=== PATIENT | male | born 2005 | race Caucasian/White ===

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

== ENCOUNTER 2025-08-29 10:17 | Emergency (ER) | payer BC, SELFPAY ==
--- OUTSIDE RECORDS SUMMARY | 2024-04-01 15:30 | XMS_ITS ---
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 Name Role Phone Brenda KELLY, Aaliyah Primary Care Provider Unavailable Yasmine Bailey Unavailable [phone] [facility], Provider Un[facility] Conversion Encounter Medications Medication SIG (Take, Route, Frequency, Duration) Notes Start Date End Date Status Benadryl Allergy Childrens 12.5 MG/5ML 5 mL orally QID PRN; Duration: 5 day(s) Active ZyrTEC Allergy 10 MG 1 tab(s) orally bid; Duration: 30 day(s) Active RANITIDINE HYDROCHLORIDE 150 MG 1 TAB(S) ORALLY 2 TIMES A DAY *Please review for potential replacement for e-prescription and drug interaction check* 02/17/2017 Active Encounters Encounter Location Date Provider Diagnosis [facility] - [address] [address] 04/01/2024 Provider [facility] Idiopathic urticaria L50.1 Assessments Encounter Date Diagnosis (ICD Code) Assessment Notes Treatment Notes Treatment Clinical Notes Section Notes 04/01/2024 Idiopathic urticaria (ICD-10 - L50.1) Plan Of Treatment Medication Medication Name Sig Start Date Stop Date Notes ZyrTEC Allergy 10 MG 1 tab(s) orally bid; Duration: 30 day(s) RANITIDINE HYDROCHLORIDE 150 MG 1 TAB(S) ORALLY 2 TIMES A DAY 02/17/2017 *Please review for potential replacement for e-prescription and drug interaction check* Progress Notes * Kel QUIROGA JCDOB:2004 (20 yo M)Acc No.[id number]:04/01/2024 Patient: Kel SOTO JAKE Provider: Will Barraza :2005 A ge:18 Y S ex:Male Date:04/01/2024 Address:[address] [place] [address], [address] [place], [place] [id number] Pcp:Cathryn Maldonado Subjective: * Chief Complaints: * 1 . [facility] Conversion Encounter. * Medical History: * Medications: T aking Benadryl Allergy Childrens 12.5 MG/5ML Liquid 5 mL orally QID PRN Objective: * Vitals: Assessment: * Assessment: 1. I diopathic urticaria - L50.1 (Primary) Plan: * Treatment: * Billing Information: * Visit Code: * Procedure Codes: * Electronic signature of Prov ider [facility] on 08/29/2025 at 11:28 AM [employer] Sign off status: Pending * Provider: Will Barraza Date: 0 04/01/2024 Generated for Tamica landrum/Meghan/Isauroitting on: 1 10/29/2024 11:28 AM [employer]
[2025-08-29 10:27] VITALS: BP 111/86; PULSE 97; RESP 18; TEMP 37.2; O2SAT 98
[2025-08-29 11:10] LABS: EDCOVIDSCREEN Positive (Negative)
[2025-08-29 11:11] LABS: EDSTREPNEGPOS1 Negative (Negative)
[2025-08-29 11:20] LABS: EDINFLUASCREEN Negative (Negative); EDINFLUBSCREEN Negative (Negative)
--- OUTSIDE RECORDS SUMMARY | 2025-08-29 11:28 | XMS_ITS | Patient Health Record ---
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 Name Role Phone Aaliyah Gutierrez MD Primary Care Provider Unavailable Yasmine Bailey Unavailable [phone] Reason For Referral No Information Medications Medication SIG (Take, Route, Frequency, Duration) Notes Start Date End Date Status Benadryl Allergy Childrens 12.5 MG/5ML 5 mL orally QID PRN; Duration: 5 day(s) Active BENADRYL ALLERGY 12.5 mg/5 mL 5 mL orally QID PRN; Duration: 5 day(s) Active ZyrTEC Allergy 10 MG 1 tab(s) orally bid; Duration: 30 day(s) Active RANITIDINE HYDROCHLORIDE 150 MG 1 TAB(S) ORALLY 2 TIMES A DAY *Please review for potential replacement for e-prescription and drug interaction check* 02/17/2017 Active ZYRTEC 10 mg 1 tab(s) orally bid; Duration: 30 day(s) Active Immunizations Vaccine Route Administration Date Status Comme nts Influenza Unknown 06/22/2016 Administered Problems Problem Type SNOMED Code ICD Code Onset Dates Problem Status W/U Status Risk Notes Problem Idiopathic urticaria (30598016) Idiopathic urticaria (L50.1) Active confirmed Problem Eruption of skin (992310159) Rash and other nonspecific skin eruption (R21) Active confirmed Problem Allergic rhinitis (11158684) Other allergic rhinitis (J30.89) Active confirmed Plan Of Treatment No Information Insurance Providers Payer Name Payer Address Payer Phone Subscriber Number Group Number Insured Name Patient Relationship to Insured Coverage Start Date Coverage End Date [facility] [address] [place] [address] [id number] Zaid Quiroga Natural Child - Insured has Financial Responsibility Medical (General) History Medical History History ICD Code Petechial Rash 12/2016
--- NOTE | 2025-08-29 11:49 | ED.URI ---
HPI - URI/Sore Throat General Chief Complaint: Upper Respiratory Infection Stated Complaint: Sore Throat Time Seen by Provider: 08/29/25 11:00 Source: patient and RN notes reviewed Mode of arrival: ambulatory Limitations: no limitations History of Present Illness HPI Narrative: 20-year-old male patient presents [facility] complaining of upper respiratory symptoms for approximately 3 days. Patient reports cough, body aches, chills, congestion, sore throat, shortness of breath, chest congestion. Patient denies any chest pain, difficulty breathing, nausea vomiting, diarrhea, any other upper respiratory symptoms, fevers, or any other symptoms. Patient taking DayQuil and NyQuil to help with symptoms with some relief. Patient reports he is a smoker. Patient said he took a home COVID test yesterday was positive. Patient is has gotten vaccinated for COVID in the past. Related Data Home Medications ?Medication ?Instructions ?Recorded ?Confirmed ?Last Taken ?Type medical cannabis BYMOUTH 12/06/23 12/06/23 Unknown History Allergies Allergy/AdvReac Type Severity Reaction Status Date / Time No Known Allergies Allergy Verified 08/29/25 10:28 Review of Systems Review of Systems: CONSTITUTIONAL: Denies fever, or sweats. Positive body aches chills. EYES: Denies visual changes, redness, or discharge. ENT: Positive for congestion, sore throat. Negative for rhinorrhea or otalgia. CARDIOVASCULAR: Denies chest pain, palpitations, dizziness or lightheadedness, or edema. RESPIRATORY: Positive for cough and dyspnea. Negative for wheezing or difficulty breathing. GASTROINTESTINAL: Denies abdominal pain, nausea, vomiting, or diarrhea. GENITOURINARY: Denies dysuria or hematuria. SKIN: Denies rash or itching. MUSCULOSKELETAL: Denies back pain, joint pain, or myalgia. NEUROLOGIC: Denies headache, numbness, or weakness. PSYCHIATRIC: Denies anxiety or depression. All other systems reviewed are negative, except as documented in HPI. [facility] Past Medical History Medical History Localized swelling, mass and lump, unspecified upper limb Intermittent chest pain Pain of right scapula BMI 21.0-21.9, adult Encounter for wellness examination in adult Anorexia nervosa in remission in remission with cannabis. Treatment started at age 14. BMI 22.0-22.9, adult Marijuana use smokes once or twice daily. medical cannabis for diagnosis of anorexia at age 14. Chronic anxiety Potential exposure to STD Moderately severe depression Vertigo Insomnia Near [facility] [place] School physical exam Acne vulgaris Tension headache, chronic Seasonal allergic rhinitis COVID test was negative 01/29/2022. Chronic pain of both knees Chronic low back pain without sciatica Family History Family History Grandparent Family history of obesity Family history of congestive heart failure Family history of human immunodeficiency virus infection Mother Hypertension Social History Social History Second hand tobacco smoke exposure: No Alcohol intake: never Substance use: current Substance use type: marijuana Lack of Transportation: No Lack of Food: Never True Current Housing: I Have Housing Concerned About Future Housing: No Difficulty Paying Gas/Electric Bills: No Difficulty Paying for Meds: No Currently Unemployed: No Education: Grade School Difficulty w/ Childcare or Family Care: No Comments At the time of my signature, I reviewed and agree with the nursing past medical, surgical, social, and family history. There is no relevant family history pertinent to the patient complaint. Exam Narrative: GENERAL: This is a well-nourished, well-developed adult, in no apparent distress. They are non ill-appearing, nontoxic appearing. HEAD: normocephalic, atraumatic. EYES: Sclera clear/white. Vision is grossly intact. Conjunctiva normal bilaterally. Extraocular movements intact. EARS: External ears normal, auditory canals clear and without drainage, TMs without erythema or perforation. Hearing grossly intact. NOSE: External nose normal with no obvious nasal discharge, nasal turbinates erythematous, no rhinorrhea. THROAT: Mucous membranes moist, posterior pharynx erythematous without exudate. Red and patchy. Uvula is midline. Postnasal drip present. NECK: Neck supple, mild cervical lymphadenopathy, no masses or thyromegaly. CARDIOVASCULAR: Regular rate and rhythm without murmurs, gallops, or rubs. RESPIRATORY: Clear to auscultation. Breath sounds equal bilaterally. No wheezes, rales, or rhonchi. Respiratory rate normal, respiratory effort nonlabored, no respiratory distress SKIN: warm, Dry, intact with no suspicious lesions or rash, good texture and turgor. NEURO: awake, alert, and oriented to person, place and time. There were no obvious focal neurologic abnormalities. EXTREMITIES: No joint tenderness, effusion, or edema noted. BACK: Nontender without deformity. Course Course Emergency Course: Portions of this record may have been created with voice recognition software Level of Care: Express Care Visit Vital Signs Vital signs: Vital Signs Temperature 99.0 F 08/29/25 10:27 Pulse Rate 97 08/29/25 10:27 Respiratory Rate 18 08/29/25 10:27 Blood Pressure 111/86 08/29/25 10:27 Pulse Oximetry 98 08/29/25 10:27 Oxygen Delivery Room Air 08/29/25 10:27 Temperature 99.0 F 08/29/25 10:27 Pulse Rate 97 08/29/25 10:27 Respiratory Rate 18 08/29/25 10:27 Blood Pressure 111/86 08/29/25 10:27 Pulse Oximetry 98 08/29/25 10:27 Oxygen Delivery Room Air 08/29/25 10:27 MDM - URI/Sore Throat MDM Narrative Medical decision making narrative: Rapid COVID positive. Rapid flu and strep were negative. A throat culture is pending. Symptoms consistent COVID virus. Given patient's smoking history will give a course of prednisone to help with the dyspnea along with an albuterol inhaler and benzonatate tablets for cough. Discussed supportive care. Patient nontoxic appearing, no apparent distress. Vital signs hemodynamically stable. Oxygen saturations are normal. Discussed physical exam findings. Advised supportive measures and signs/symptoms to go to the ER. Pt is appropriate for outpt treatment and f/u. Differential Diagnosis Differential diagnosis: Likely upper respiratory infection, sinusitis, viral infection, bronchitis, influenza, pharyngitis and other (COVID) Lab Data Attestation: I reviewed the patient's lab results. Labs: Lab Results 08/29/25 08/29/25 08/29/25 Range/Units 11:08 11:09 11:18 POC Influenza A Ag Negative (Negative) POC Influenza B Ag Negative (Negative) POC SARS CoV-2 Ag Positive (Negative) POC Grp A Strep Screen Negative (Negative) Discharge Plan Discharge Clinical Impression: COVID Patient Disposition: Home Condition: Stable Instructions: Antibiotic Form, COVID-19 (Coronavirus Disease 2019) (ED) Additional Instructions: You should avoid crowds until you are fever free for 24 hours without the use of fever reducing medications, or the symptoms are improved Rest. Drink plenty of fluids. Take the prednisone as directed. Use albuterol inhaler as needed for shortness of breath or wheezing. Use with a spacer. Please stop smoking. You may take ibuprofen 600 mg to 800 mg every 6-8 hours. Do not exceed more than 800 mg of ibuprofen per dose. Do not exceed more than 3200 mg ibuprofen in a day. You may take up to 1000 mg Tylenol every 6-8 hours. Do not exceed 1000 mg per dose, do exceed more than 4000 mg of Tylenol in a day. Take benzonatate as needed for cough. Rest and drink plenty of fluids. Follow up with your primary care provider 5-7 days. Go to the ER for worsening symptoms, difficulty breathing, wheezing, unable to talk in full sentences, severe chest pains, vomiting, uncontrollable fevers, or any serious concerns Patient Language: Citizen [place] Prescriptions: New benzonatate 200 mg capsule 200 mg PO BID PRN (Reason: cough) Qty: 20 0RF prednisone 20 mg tablet 40 mg PO DAILY 5 Days Qty: 10 0RF albuterol sulfate [Ventolin HFA] 90 mcg/actuation HFA aerosol inhaler 2 puff inhalation QID PRN (Reason: shortness of breath or wheezing) Qty: 8.5 0RF (DME) [employer] Aerosol [employer] Enhancer Spacer See Rx Instructions .Route Qty: 1 0RF Rx Instructions: As directed No Action medical cannabis BYMOUTH Patient Comments: Diagnosed with anorexia at age 14. Treated with medical cannabis. meloxicam 15 mg tablet 15 mg PO DAILY PRN (Reason: pain) Qty: 30 11RF Follow-up/Referrals: Yu Hernadez APRN [Primary Care Provider, [facility]] Time of Disposition: 11:20
== END 2025-08-29 11:25 | disposition home or self-care (01) ==
PROVIDERS: PCP Nurse Practitioner Family
DX: U07.1 COVID-19 (principal)
CPT/HCPCS: 87081; 87426; 87804; 87880; 99213; G0463